=== PATIENT | female | born 1990 | race African-American/Black ===

== ENCOUNTER 2017-03-19 11:48 | Emergency (ER) | payer SELFPAY ==
[~2017-03-19] VITALS: Ht 167.6 cm; Wt 82.0 kg
[2017-03-19 15:13] VITALS: BP 114/73
== END 2017-03-19 15:23 | disposition home or self-care (01) ==
LOC: ER 13:39
DX: K64.5 Perianal venous thrombosis (principal)
CPT/HCPCS: 99282; J7040; Z7610